=== PATIENT | female | born 1995 | race Caucasian/White ===

== ENCOUNTER 2019-04-11 13:12 | Outpatient (CLI) | payer OTHER, BC ==
--- NOTE | 2019-04-15 08:10 | ULT ---
THYROID ULTRASOUND INDICATION: Neck pain with difficulty swallowing TECHNIQUE: Grayscale and color Doppler images were obtained of the thyroid gland. COMPARISON: None FINDINGS: Right thyroid lobe: The right thyroid lobe measures 5.5 x 1.5 x 1.3 cm. No focal thyroid lesion. Thyroid isthmus: The thyroid isthmus measures 0.39 cm. No focal thyroid lesion Left thyroid lobe: The left thyroid lobe measures 5.2 x 1.3 x 1.8 cm. No focal thyroid lesion IMPRESSION: 1. No focal thyroid lesion demonstrated.
== END 2019-04-11 13:13 | disposition home or self-care (01) ==
LOC: BICULT 13:12
DX: E04.9 Nontoxic goiter, unspecified (principal)
CPT/HCPCS: 76536